=== PATIENT | female | born 1995 | race Hispanic/Latino ===

== ENCOUNTER 2022-12-21 23:05 | Emergency (ER) | payer OTHER ==
[~2022-12-21] VITALS: Ht 170.2 cm; Wt 106.6 kg
[2022-12-21 23:36] LABS: BASOPHILS # (AUTO) 0.05 K/uL (0.00-0.20); BASOPHILS % (AUTO) 0.4 % (0.0-5.0); EOSINOPHILS # (AUTO) 0.21 K/uL (0.00-0.70); EOSINOPHILS % (AUTO) 1.7 % (0.0-8.0); HEMATOCRIT 37.9 % (36-48); IMMATURE GRANULOCYTE ABSOLUTE 0.04 K/uL (0-1); LYMPHOCYTES # (AUTO) 4.2 K/uL (1.0-4.8); LYMPHOCYTES % (AUTO) 33.4 % (21.0-51.0); MEAN CORPUSCULAR HEMOGLOBIN 31.5 pg (27.0-33.0); MEAN CORPUSCULAR HGB CONC 33.8 g/dL (32.0-36.0); MEAN CORPUSCULAR VOLUME 93.3 fL (79-99); MONOCYTES # (AUTO) 0.6 K/uL (0.1-1.0); NEUTROPHILS # (AUTO) 7.4 K/uL (1.8-7.7); NEUTROPHILS % (AUTO) 59.2 % (40.0-77.0); PLATELET COUNT (AUTO) 212 K/uL (130-400); RED BLOOD CELL COUNT(AUTO) 4.06 MIL/uL (4.00-5.50); RED CELL DISTRIBUTION WIDTH 11.9 % (11.0-15.5); WHITE BLOOD COUNT (AUTO) 12.5 K/uL (4.8-10.8)
[2022-12-21 23:42] LABS: CREATININE 0.8 mg/dL (0.5-1.5); POTASSIUM 3.8 mmol/L (3.5-5.1)
[2022-12-21 23:53] LABS: ALBUMIN 3.7 g/dL (3.5-5.0); BILIRUBIN,TOTAL 0.3 mg/dL (0.2-1.0); TOTAL PROTEIN, SERUM 7.2 g/dL (6.0-8.3)
[2022-12-22] MEDS ORDERED: HYDROMORPHONE 1 MG INJ IVP ONE (02:30)
[2022-12-22] MEDS ORDERED: HYDROMORPHONE 1 MG INJ ONE (02:31)
[2022-12-22 02:52] VITALS: BP 114/62; PULSE 78; RESP 16; O2SAT 98
== END 2022-12-22 03:56 | disposition home or self-care (01) ==
LOC: EDH 23:05
DX: O99.891 Other specified diseases and conditions complicating pregnancy (principal); M54.9 Dorsalgia, unspecified; R10.11 Right upper quadrant pain; O26.619 Liver and biliary tract disorders in pregnancy, unspecified trimester; K76.0 Fatty (change of) liver, not elsewhere classified; O21.9 Vomiting of pregnancy, unspecified; Z3A.01 Less than 8 weeks gestation of pregnancy
CPT/HCPCS: 99285; 80053; 84703; 84702; 83690; 85025; 36415; 96374; 76705; J1170

== ENCOUNTER 2022-12-29 09:38 | Emergency (ER) | payer MEDICAID, OTHER ==
[~2022-12-29] VITALS: Ht 170.2 cm; Wt 106.6 kg
[2022-12-29 09:43] VITALS: BP 150/83; PULSE 62; RESP 16; O2SAT 100
[2022-12-29 11:20] LABS: BASOPHILS # (AUTO) 0.02 K/uL (0.00-0.20); BASOPHILS % (AUTO) 0.3 % (0.0-5.0); EOSINOPHILS # (AUTO) 0.09 K/uL (0.00-0.70); EOSINOPHILS % (AUTO) 1.1 % (0.0-8.0); HEMATOCRIT 41.1 % (36-48); IMMATURE GRANULOCYTE ABSOLUTE 0.03 K/uL (0-1); LYMPHOCYTES # (AUTO) 2.5 K/uL (1.0-4.8); LYMPHOCYTES % (AUTO) 31.4 % (21.0-51.0); MEAN CORPUSCULAR HEMOGLOBIN 31.1 pg (27.0-33.0); MEAN CORPUSCULAR HGB CONC 33.6 g/dL (32.0-36.0); MEAN CORPUSCULAR VOLUME 92.6 fL (79-99); MONOCYTES # (AUTO) 0.3 K/uL (0.1-1.0); NEUTROPHILS % (AUTO) 62.8 % (40.0-77.0); PLATELET COUNT (AUTO) 242 K/uL (130-400); RED BLOOD CELL COUNT(AUTO) 4.44 MIL/uL (4.00-5.50); RED CELL DISTRIBUTION WIDTH 11.7 % (11.0-15.5); WHITE BLOOD COUNT (AUTO) 7.9 K/uL (4.8-10.8)
[2022-12-29 11:26] LABS: APPEARANCE,URINE CLEAR (CLEAR); BILIRUBIN,URINE NEGATIVE (NEGATIVE); COLOR,URINE COLORLESS (YELLOW); GLUCOSE, URINE (UA) NEGATIVE (NEGATIVE); KETONES,URINE NEGATIVE (NEGATIVE); LEUKOCYTE ESTERASE ,URINE NEGATIVE Leu/uL (NEGATIVE); NITRATE,URINE NEGATIVE (NEGATIVE); OCCULT BLOOD,URINE LARGE (NEGATIVE); PH,URINE 6.5 (5.0-8.0); PROTEIN,URINE NEGATIVE (NEGATIVE); UROBILINOGEN,URINE 0.2 mg/dL (0.2-1.0)
[2022-12-29 11:30] LABS: CREATININE 0.6 mg/dL (0.5-1.5); POTASSIUM 3.5 mmol/L (3.5-5.1)
[2022-12-29 11:32] LABS: ADD UA MICROSCOPIC YES
[2022-12-29 11:36] LABS: RBC,URINE TNTC /HPF (0-1); SQUAMOUS EPITHELIAL CELL,UR MOD /HPF (0-2)
[2022-12-29 11:37] LABS: WBC,URINE 0-1 /HPF (0-1)
[2022-12-29 11:40] LABS: ALBUMIN 3.8 g/dL (3.5-5.0); BILIRUBIN,TOTAL 0.3 mg/dL (0.2-1.0); TOTAL PROTEIN, SERUM 7.9 g/dL (6.0-8.3)
[2022-12-29] MEDS ORDERED: ACET-66 PO (12:05)
== END 2022-12-29 13:04 | disposition home or self-care (01) ==
LOC: EDH 09:38
DX: O03.9 Complete or unspecified spontaneous abortion without complication (principal); Z3A.08 8 weeks gestation of pregnancy; Z88.2 Allergy status to sulfonamides
CPT/HCPCS: 36415; 76801; 80053; 81001; 84702; 85025; 86900; 86901

== ENCOUNTER 2023-09-13 04:03 | Inpatient (IN) | payer MEDICAID ==
[~2023-09-13] VITALS: Ht 170.2 cm; Wt 119.3 kg
[~2023-09-13 04:03] MED LIST: ACET-66 PO
[2023-09-13 04:41] LABS: APPEARANCE,URINE CLEAR (CLEAR); BILIRUBIN,URINE NEGATIVE (NEGATIVE); COLOR,URINE COLORLESS (YELLOW); GLUCOSE, URINE (UA) NEGATIVE (NEGATIVE); KETONES,URINE NEGATIVE (NEGATIVE); LEUKOCYTE ESTERASE ,URINE NEGATIVE Leu/uL (NEGATIVE); NITRATE,URINE NEGATIVE (NEGATIVE); OCCULT BLOOD,URINE NEGATIVE (NEGATIVE); PROTEIN,URINE NEGATIVE (NEGATIVE); UROBILINOGEN,URINE 0.2 mg/dL (0.2-1.0)
[2023-09-13] MEDS: LACTATED RINGERS 1000ML 1,000 ML IV SCH (04:45)
[2023-09-13 04:52] LABS: ADD UA MICROSCOPIC NO
[2023-09-13] MEDS ORDERED: CEFAZOLIN SODIUM 1 GM VIAL IVPB PRN (05:00)
[2023-09-13] MEDS ORDERED: CALDOLOR 800MG+NS 250ML 250 ML IV PRN (05:00)
[2023-09-13 05:21] LABS: HEMATOCRIT 37.4 % (36-48); MEAN CORPUSCULAR HGB CONC 34.2 g/dL (32.0-36.0); MEAN CORPUSCULAR VOLUME 90.6 fL (79-99); RED BLOOD CELL COUNT(AUTO) 4.13 MIL/uL (4.00-5.50); WHITE BLOOD COUNT (AUTO) 11.2 K/uL (4.8-10.8)
[2023-09-13 06:03] LABS: HIV 1&2 ANTIBODY Non-Reactive (Negative)
[2023-09-13 06:04] LABS: HIV-1 p24 Antigen Non-Reactive (Negative)
[2023-09-13] MEDS: MORPHINE PF 100MG/10ML AMP IV ONE (09:09)
[2023-09-13] MEDS: CEFAZOLIN SODIUM 3 GM VIAL IVPB ONE (09:15)
[2023-09-13] MEDS: EPHEDRINE SULFATE 50 MG/ML AMPULE ONE (09:26)
[2023-09-13] MEDS ORDERED: PROMETHAZINE HCL 25 MG/ML 1ML AMPULE IM PRN (10:30)
[2023-09-13] MEDS ORDERED: 0.9%NACL 10ML VIAL IVP PRN (10:30)
[2023-09-13] MEDS ORDERED: MEPERIDINE-PF 75 MG/ML SYG IM PRN (10:30)
[2023-09-13] MEDS: ONDANSETRON 4MG INJ ONE (11:35)
[2023-09-13] MEDS: CALDOLOR 800MG+NS 250ML 250 ML IV SCH ×2 (11:36→20:16)
[2023-09-13 12:30] VITALS: BP 125/72; PULSE 80; RESP 20
[2023-09-13] MEDS ORDERED: DiphenhydrAMINE HCL 50 MG/ML VIAL IV PRN (13:30)
[2023-09-13] MEDS: METOCLOPRAMIDE 10 MG/2 ML VIAL IVP ONE (13:33)
[2023-09-13] MEDS ORDERED: PREN1TAB80 PO (14:28)
[2023-09-13 14:38] LABS: RAPID PLASMA REAGIN NONREACTIVE (NONREACTIVE)
[2023-09-13] MEDS: DEXTROSE 5 %-0.45 % NACL 1,000 ML IV PRN (14:41)
[2023-09-13 16:00] VITALS: BP 118/63; PULSE 71; RESP 18
[2023-09-13] MEDS: OXYTOCIN-LR 30 UNITS/500ML 500 ML IV PRN (16:20)
[2023-09-13] MEDS: ONDANSETRON 4MG INJ IVP PRN (16:34)
[2023-09-13 19:30] VITALS: BP 115/65; PULSE 67; RESP 18
[2023-09-13] MEDS: DIPH,PERTUSS(ACELL),TET VAC/PF 0.5 ML VIAL IM ONE (20:00)
[2023-09-13 23:08] VITALS: BP 111/60; PULSE 65; RESP 18
[2023-09-14] MEDS ORDERED: LANOLIN 30GM OINTMENT TP PRN (00:30)
[2023-09-14] MEDS ORDERED: HYDROCODONE/ACETAMINOPHEN 5/325 MG TAB PO PRN (00:30)
[2023-09-14] MEDS ORDERED: DIPHENHYDRAMINE HCL 25 MG CAPSULE PO PRN (00:30)
[2023-09-14] MEDS: ACETAMINOPHEN 500 MG TABLET PO PRN (02:01)
[2023-09-14] MEDS: DIPH,PERTUSS(ACELL),TET VAC/PF 0.5 ML VIAL ONE (02:02)
[2023-09-14] MEDS: DIPH,PERTUSS(ACELL),TET VAC/PF 0.5 ML VIAL IM SCH (02:06)
[2023-09-14 03:01] VITALS: BP 105/62; PULSE 62; RESP 20
[2023-09-14] MEDS: CALDOLOR 800MG+NS 250ML 250 ML IV ONE (03:56)
[2023-09-14 06:55] LABS: MEAN CORPUSCULAR HGB CONC 34.1 g/dL (32.0-36.0); MEAN CORPUSCULAR VOLUME 90.9 fL (79-99); RED BLOOD CELL COUNT(AUTO) 3.52 MIL/uL (4.00-5.50); RED CELL DISTRIBUTION WIDTH 12.1 % (11.0-15.5); WHITE BLOOD COUNT (AUTO) 10.1 K/uL (4.8-10.8)
[2023-09-14 07:20] VITALS: BP 120/68; PULSE 68; RESP 20
[2023-09-14] MEDS ORDERED: BISACODYL 10 MG SUPP.RECT RC PRN (09:00)
[2023-09-14] MEDS: SIMETHICONE 80 MG TAB.CHEW PO PRN (09:58)
[2023-09-14] MEDS: DOCUSATE SODIUM 100 MG CAP PO SCH (09:58)
[2023-09-14] MEDS: IBUPROFEN 800 MG TAB PO SCH (09:59)
[2023-09-14 12:00] VITALS: BP 125/71; PULSE 71; RESP 18
[2023-09-14 15:45] VITALS: BP 118/62; PULSE 70; RESP 18
[2023-09-14 20:07] VITALS: BP 121/70; PULSE 83; RESP 20
[2023-09-14] MEDS: ACETAMINOPHEN WITH CODEINE 1 TAB TAB PO PRN (20:07)
[2023-09-14 23:19] VITALS: BP 99/61; PULSE 67; RESP 20
[2023-09-15 03:03] VITALS: BP 124/69; PULSE 76; RESP 20
[2023-09-15 07:45] VITALS: BP 135/75; PULSE 71; RESP 18
[2023-09-15] MEDS ORDERED: DOCU-116 PO (09:00)
[2023-09-15] MEDS ORDERED: ACET-2079 PO (09:01)
[2023-09-15] MEDS ORDERED: IBUP-2077 PO (09:01)
[2023-09-15 11:46] VITALS: BP 128/70; PULSE 85; RESP 20
== END 2023-09-15 12:00 | disposition home or self-care (01) | DRG 540 ==
LOC: EDH 04:03 → LDH 04:18 → OBSVTOIN 04:18 → INTOOBSV 04:18 → WSH 12:05
PROVIDERS: ADMIT Obstetrics & Gynecology; ATTEND Obstetrics & Gynecology
PROC: 10D00Z1 Extraction of Products of Conception, Low, Open Approach (ICD-10-PCS; principal; 2023-09-13 08:00)
DX: O34.211 Maternal care for low transverse scar from previous cesarean delivery (principal); O99.214 Obesity complicating childbirth; O69.81X0 Labor and delivery complicated by cord around neck, without compression, not applicable or unspecified; Z37.0 Single live birth; Z3A.37 37 weeks gestation of pregnancy
CPT/HCPCS: 36415; 59510; 81003; 85027; 86592; 86701; 86850; 86900; 86901; 87340; 87390; 90715; A4344; G0378; J0690; J1741; J2274; J2405; J2765; J3490; J7120; A4248; C1765